=== PATIENT | male | born 1955 | race Caucasian/White ===

== ENCOUNTER → 2016-05-18 | Outpatient (CLI) | payer BC ==
[2016-05-18 13:36] LABS: ALBUMIN 3.8 GM/DL (3.2-5.2); ALBUMIN/GLOBULIN RATIO 1.41 (1.00-1.93); ALKALINE PHOSPHATASE 65 U/L (45-117); ALT/SGPT 27 U/L (12-78); ANION GAP 6 MEQ/L (8-16); AST/SGOT 18 U/L (15-37); BILIRUBIN,TOTAL 0.7 MG/DL (0.2-1.0); BLOOD UREA NITROGEN 15 MG/DL (7-18); CALCIUM LEVEL 9.2 MG/DL (8.8-10.2); CARBON DIOXIDE LEVEL 31 MEQ/L (21-32); CHLORIDE LEVEL 105 MEQ/L (98-107); CHOLESTEROL LEVEL 111 MG/DL (<200); CREATININE FOR GFR 0.86 MG/DL (0.70-1.30); GLOMERULAR FILTRATION RATE > 60.0 (>49); GLUCOSE, FASTING 92 MG/DL (80-110); POTASSIUM SERUM 4.3 MEQ/L (3.5-5.1); SODIUM LEVEL 142 MEQ/L (136-145); TOTAL PROTEIN 6.5 GM/DL (6.4-8.2); TRIGLYCERIDES LEVEL 151 MG/DL (<150)
== END ==
LOC: M WUC 08:45
PROVIDERS: ATTEND Emergency Medicine
DX: Z00.00 Encounter for general adult medical examination without abnormal findings (principal); I10 Essential (primary) hypertension; E78.2 Mixed hyperlipidemia; N40.1 Benign prostatic hyperplasia with lower urinary tract symptoms; R73.01 Impaired fasting glucose

== ENCOUNTER → 2020-11-13 | Outpatient (CLI) | payer MEDICARE, OTHER | LOC: M WUC 08:33 | PROVIDERS: ATTEND Student in an Organized Health Care Education/Training Program | DX: E78.2 Mixed hyperlipidemia (principal) ==

== ENCOUNTER → 2020-11-17 | Outpatient (CLI) | payer OTHER ==
[2020-11-17 13:34] LABS: BASO % 0.4 % (0.0-1.0); EOS # 0.1 10^3/uL (0.0-0.5); EOS % 0.7 % (0.0-3.0); HEMATOCRIT 46.4 % (42.0-52.0); HEMOGLOBIN 14.8 g/dl (13.5-17.5); LYMPH # 1.9 10^3/uL (1.5-5.0); LYMPH % 21.7 % (24.0-44.0); MEAN CORPUSCULAR HGB CONC 31.9 g/dl (32.0-36.5); MEAN CORPUSCULAR VOLUME 84.7 fl (80.0-96.0); MONO # 0.7 10^3/uL (0.0-0.8); NEUTROPHILS # 6.2 10^3/uL (1.5-8.5); NEUTROPHILS % 68.9 % (36.0-66.0); PLATELET COUNT, AUTOMATED 252 10^3/uL (150-450); RED BLOOD COUNT 5.48 10^6/uL (4.30-6.10); WHITE BLOOD COUNT 8.9 10^3/uL (4.0-10.0)
[2020-11-17 14:09] LABS: ALT/SGPT 22 U/L (12-78); BLOOD UREA NITROGEN 24 MG/DL (7-18); CALCIUM LEVEL 9.4 MG/DL (8.8-10.2); CARBON DIOXIDE LEVEL 29 MEQ/L (21-32); CHLORIDE LEVEL 105 MEQ/L (98-107); CPK CREATINE PHOSPHOKINASE 67 U/L (39-308); GLOMERULAR FILTRATION RATE > 60.0 (>49); GLUCOSE, FASTING 116 MG/DL (70-100); SODIUM LEVEL 139 MEQ/L (136-145); TOTAL PROTEIN 6.9 GM/DL (6.4-8.2)
== END ==
LOC: M PLALAB 09:11
PROVIDERS: ATTEND Student in an Organized Health Care Education/Training Program
DX: E78.2 Mixed hyperlipidemia (principal)

== ENCOUNTER → 2020-11-27 | Outpatient (CLI) | payer MEDICARE, OTHER ==
[~2020-11-27] MED LIST: ISOVUE-370 76% 100ML VIAL As Ordered ONE
[2020-11-27 08:43] LABS: APPEARANCE, URINE CLEAR (CLEAR); BACTERIA, URINE AUTO NEGATIVE (NEGATIVE); BILIRUBIN, URINE AUTO NEGATIVE (NEGATIVE); BLOOD, URINE BLOOD NEGATIVE (NEGATIVE); COLOR, URINE YELLOW (YELLOW); GLUCOSE, URINE (UA) AUTO NEGATIVE (NEGATIVE); KETONE, URINE AUTO NEGATIVE (NEGATIVE); LEUKOCYTE ESTERASE, URINE AUTO NEGATIVE (NEGATIVE); MUCUS, URINE SMALL (NEGATIVE); NITRITE, URINE AUTO NEGATIVE (NEGATIVE); PROTEIN, URINE AUTO NEGATIVE (NEGATIVE); RBC, URINE AUTO 1 /HPF (0-3); SPECIFIC GRAVITY URINE AUTO 1.021 (1.002-1.035); SQUAMOUS EPITHELIAL CELL UR AU 0 /HPF (0-6); UROBILINOGEN, URINE AUTO 0.2 mg/dL (0.0-2.0); WBC, URINE AUTO 3 /HPF (0-3)
--- NOTE | 2020-11-27 09:15 | REP ---
INDICATION: NICOTINE DEPENDENCE WITH CURRENT USE, HEMATURIA- LABS FIRST COMPARISON: None. TECHNIQUE: Real time aguilar scale ultrasound examination using curved array transducer. FINDINGS: The abdominal aorta is normal by sonographic evaluation without significant atherosclerotic changes and no evidence for aneurysm. Proximal aorta: 2.6 x 2.6 cm Aorta at renal arteries: 2.6 x 2.4 cm Mid aorta: 2.2 x 2.2 cm Distal aorta: 2.1 x 1.7 cm Right common iliac artery: 0.9 x 1.0 cm Left common iliac artery: 1.2 x 1.0 cm IMPRESSION: Normal abdominal aorta. No aneurysm. <Electronically signed by Conrad Mac > 11/27/20 0912
--- NOTE | 2020-11-27 09:23 | REP ---
INDICATION: GROSS HEMATURIA- LABS AND U/S FIRST. COMPARISON: None TECHNIQUE: Axial precontrast, contrast-enhanced and delayed images from the lung bases to the pubic symphysis using 100 cc Isovue 370 intravenous contrast material. Coronal and sagittal reformations obtained. 3D volume rendered urogram created. This CT examination was performed using the following dose reduction techniques: Automated exposure control, adjustment of mA and/or kv according to the patient's size, and the use of iterative reconstruction technique. FINDINGS: Right kidney includes 4 mm nonobstructing calculus and subcentimeter simple cyst while the left kidney includes 5 mm nonobstructing calculus. There is no evidence for perinephric stranding, hydroureteronephrosis or obstructing ureteral calculus. Liver, spleen, pancreas, gallbladder, and bilateral adrenal glands are normal. Incidental 1 cm cyst in the medial left lobe. The enteric system including stomach, small, and large bowel appears normal. No evidence for obstruction or acute inflammatory process. Normal terminal ileum and appendix are identified in the right lower quadrant. Scattered colonic and sigmoid diverticula noted without acute diverticulitis. Pelvis demonstrates normal bladder and enlarged prostate gland measuring 5.8 cm diameter. No ascites. No free air. No intraperitoneal or retroperitoneal adenopathy. Abdominal aorta and vasculature demonstrate atherosclerotic changes without aneurysm or dissection. Musculoskeletal structures are intact and without acute osseous abnormality. IMPRESSION: 1. Bilateral nonobstructing renal calculi and subcentimeter right renal cyst. 2. Prostatomegaly. 3. Diverticulosis. <Electronically signed by Conrad Mac > 11/27/20 0919
== END ==
LOC: M RAD 08:01
PROVIDERS: ATTEND Student in an Organized Health Care Education/Training Program
DX: N20.0 Calculus of kidney (principal); N40.0 Benign prostatic hyperplasia without lower urinary tract symptoms; K57.30 Diverticulosis of large intestine without perforation or abscess without bleeding; N28.1 Cyst of kidney, acquired; R31.0 Gross hematuria; F17.200 Nicotine dependence, unspecified, uncomplicated
CPT/HCPCS: 74178; 76775; 81001; 87086; 88108; Q9967

== ENCOUNTER → 2020-12-16 | Outpatient (REF) | payer MEDICARE, OTHER | LOC: M SFHCPLAZ 09:53 | PROVIDERS: ATTEND Family Medicine | DX: N40.0 Benign prostatic hyperplasia without lower urinary tract symptoms (principal) ==

== ENCOUNTER → 2020-12-16 | Outpatient (CLI) | payer MEDICARE, OTHER | LOC: M PLALAB 10:14 | PROVIDERS: ATTEND Student in an Organized Health Care Education/Training Program | DX: N40.0 Benign prostatic hyperplasia without lower urinary tract symptoms (principal) | CPT/HCPCS: 36415; G0103 ==

== ENCOUNTER → 2020-12-30 | Outpatient (CLI) | payer MEDICARE, OTHER ==
--- NOTE | 2020-12-30 14:25 | REP ---
INDICATION: NICOTINE DEPENDENCE. COMPARISON: None. TECHNIQUE: Axial noncontrast images from the thoracic inlet to the upper abdomen using low-dose lung screening technique (LDCT). As per the protocol only lung window images were sent to the read station for interpretation. FINDINGS: There is biapical pleuroparenchymal scarring right greater than left. There are emphysematous changes. Parenchymal bulla and pleural blebs are identified. There is a small 4 mm size asymmetric nodule in the right middle lobe. There is a 6 mm size nodule in the right lower lobe. Grossly, the mediastinum and pulmonary tammy are within normal limits. Grossly, the imaged upper abdomen and imaged osseous structures are within normal limits. IMPRESSION: Pulmonary nodules and chronic lung field changes as described above. According to the revised Fleischner society criteria the 6 mm size nodule represents a category 3 lesion for which a six-month follow-up chest CT is recommended since are no priors for comparison. The fact that the nodule was seen on the lung base images of 11/27/[address] does not change the lung rads category of 3. <Electronically signed by Sonido Mejia > 12/30/20 [id number]
== END ==
LOC: M RAD 13:02
PROVIDERS: ATTEND Student in an Organized Health Care Education/Training Program
DX: R91.8 Other nonspecific abnormal finding of lung field (principal); F17.200 Nicotine dependence, unspecified, uncomplicated

== ENCOUNTER → 2021-02-02 | Outpatient (CLI) | payer MEDICARE, OTHER | LOC: M WUC 13:02 | PROVIDERS: ATTEND Urology | DX: R97.20 Elevated prostate specific antigen [PSA] (principal) ==

== ENCOUNTER → 2021-05-07 | Outpatient (REF) | payer MEDICARE, OTHER ==
[2021-05-07 13:46] LABS: APPEARANCE, URINE MANUAL TURBID (CLEAR); COLOR, URINE MANUAL RED (YELLOW)
[2021-05-07 13:47] LABS: BILIRUBIN, URINE MANUAL NEGATIVE (NEGATIVE); BLOOD URINE MANUAL POSITIVE (NEGATIVE); GLUCOSE, URINE (UA) MANUAL NEGATIVE (NEGATIVE); KETONE, URINE MANUAL NEGATIVE (NEGATIVE); LEUKOCYTE ESTERASE, URINE MAN POSITIVE (NEGATIVE); NITRITE, URINE MANUAL NEGATIVE (NEGATIVE); PROTEIN, URINE MANUAL 2+ mg/dL (NEGATIVE); SPECIFIC GRAVITY,URINE MANUAL 1.025 (1.002-1.035); UROBILINOGEN, URINE MANUAL NORMAL (NORMAL)
[2021-05-07 13:56] LABS: RBC, URINE TNTC /hpf (0-3); SQUAMOUS EPITHELIAL CELL URINE NONE SEEN /hpf (SMALL AMT); WBC, URINE TNTC /hpf (0-3)
[2021-05-07 13:57] LABS: BACTERIA, URINE LARGE AMOUNT; HYALINE CAST, URINE NONE SEEN /lpf (0-1)
== END ==
LOC: M SMT 12:56
PROVIDERS: ATTEND Urology
DX: R31.0 Gross hematuria (principal)

== ENCOUNTER → 2021-06-08 | Outpatient (CLI) | payer MEDICARE, OTHER ==
[2021-06-09 23:07] LABS: PSA % FREE 24.8 % (.); PSA FREE 1.71 ng/mL; PSA TOTAL 6.9 ng/mL (0.0-4.0)
== END ==
LOC: M WUC 09:06
PROVIDERS: ATTEND Urology
DX: R31.0 Gross hematuria (principal); R97.20 Elevated prostate specific antigen [PSA]

== ENCOUNTER → 2021-07-06 | Outpatient (CLI) | payer MEDICARE, OTHER ==
[2021-07-06 13:31] LABS: ALT/SGPT 17 U/L (12-78); BILIRUBIN,TOTAL 0.5 MG/DL (0.2-1.0); BLOOD UREA NITROGEN 20 MG/DL (7-18); CALCIUM LEVEL 9.7 MG/DL (8.8-10.2); CARBON DIOXIDE LEVEL 31 MEQ/L (21-32); CHLORIDE LEVEL 107 MEQ/L (98-107); CHOLESTEROL LEVEL 148 MG/DL (<200); CREATININE FOR GFR 0.83 MG/DL (0.70-1.30); GLOMERULAR FILTRATION RATE > 60.0 (>49); GLUCOSE, FASTING 103 MG/DL (70-100); HDL CHOLESTEROL 37 MG/DL (>40); LDL CHOLESTEROL 89 MG/DL (<100); NON-HDL-C 111 MG/DL; POTASSIUM SERUM 4.6 MEQ/L (3.5-5.1); SODIUM LEVEL 142 MEQ/L (136-145); TOTAL PROTEIN 6.9 GM/DL (6.4-8.2); TRIGLYCERIDES LEVEL 109 MG/DL (<150)
== END ==
LOC: M WUC 09:27
PROVIDERS: ATTEND Student in an Organized Health Care Education/Training Program
DX: E78.2 Mixed hyperlipidemia (principal); R97.20 Elevated prostate specific antigen [PSA]

== ENCOUNTER → 2021-07-09 | Outpatient (CLI) | payer MEDICARE, OTHER | LOC: M PLAIMG 11:07 | PROVIDERS: ATTEND Student in an Organized Health Care Education/Training Program | DX: R91.8 Other nonspecific abnormal finding of lung field (principal); N20.0 Calculus of kidney; J43.9 Emphysema, unspecified; I25.10 Atherosclerotic heart disease of native coronary artery without angina pectoris ==

== ENCOUNTER → 2021-07-09 | Outpatient (CLI) | payer MEDICARE, OTHER ==
[2021-07-09 16:31] LABS: BLOOD UREA NITROGEN 14 MG/DL (7-18); CALCIUM LEVEL 9.3 MG/DL (8.8-10.2); CARBON DIOXIDE LEVEL 29 MEQ/L (21-32); CHLORIDE LEVEL 107 MEQ/L (98-107); CREATININE FOR GFR 0.85 MG/DL (0.70-1.30); GLOMERULAR FILTRATION RATE > 60.0 (>49); GLUCOSE, FASTING 113 MG/DL (70-100); POTASSIUM SERUM 3.9 MEQ/L (3.5-5.1); SODIUM LEVEL 141 MEQ/L (136-145)
== END ==
LOC: M WUC 11:47
PROVIDERS: ATTEND Urology
DX: R97.20 Elevated prostate specific antigen [PSA] (principal)

== ENCOUNTER → 2021-07-22 | Outpatient (REF) | payer MEDICARE, OTHER | LOC: M SFHCDERM 17:23 | PROVIDERS: ATTEND Nurse Practitioner Family | DX: D22.5 Melanocytic nevi of trunk (principal) | CPT/HCPCS: 11102; 11200; 17000; 17110; 88305; G0463 ==

== ENCOUNTER → 2021-08-04 | Outpatient (CLI) | payer MEDICARE, OTHER ==
[~2021-08-04] MED LIST changes: -ISOVUE-370 76% 100ML VIAL As Ordered ONE; +PROHANCE 279.3MG/ML 15ML VIAL As Ordered ONE
== END ==
LOC: M RAD 12:32
PROVIDERS: ATTEND Urology
DX: R97.20 Elevated prostate specific antigen [PSA] (principal)
CPT/HCPCS: 72197; A9576

== ENCOUNTER → 2021-09-07 | Outpatient (REF) | payer MEDICARE, OTHER ==
[2021-09-07 19:17] LABS: APPEARANCE, URINE CLOUDY (CLEAR); BACTERIA, URINE AUTO NEGATIVE (NEGATIVE); BILIRUBIN, URINE AUTO NEGATIVE (NEGATIVE); BLOOD, URINE BLOOD 2+ (NEGATIVE); COLOR, URINE RED (YELLOW); GLUCOSE, URINE (UA) AUTO NEGATIVE (NEGATIVE); KETONE, URINE AUTO TRACE mg/dL (NEGATIVE); LEUKOCYTE ESTERASE, URINE AUTO NEGATIVE (NEGATIVE); NITRITE, URINE AUTO NEGATIVE (NEGATIVE); PROTEIN, URINE AUTO 2+ mg/dL (NEGATIVE); RBC, URINE AUTO TNTC /HPF (0-3); SPECIFIC GRAVITY URINE AUTO 1.015 (1.002-1.035); SQUAMOUS EPITHELIAL CELL UR AU 0 /HPF (0-6); UROBILINOGEN, URINE AUTO 0.2 mg/dL (0.0-2.0); WBC, URINE AUTO 0 /HPF (0-3)
== END ==
LOC: M SMT 17:10
PROVIDERS: ATTEND Urology
DX: R31.0 Gross hematuria (principal)

== ENCOUNTER → 2021-10-15 | Outpatient (REF) | payer MEDICARE, OTHER | LOC: M SFHCDERM 13:57 | PROVIDERS: ATTEND Nurse Practitioner Family | DX: D22.39 Melanocytic nevi of other parts of face (principal) ==

== ENCOUNTER → 2021-12-11 | Outpatient (REF) | payer MEDICARE, OTHER | LOC: M LAB REF 19:34 | PROVIDERS: ATTEND Physician Assistant | DX: M54.50 Low back pain, unspecified (principal); N39.0 Urinary tract infection, site not specified ==

== ENCOUNTER → 2021-12-24 | Outpatient (REF) | payer MEDICARE, OTHER ==
[2021-12-24 18:08] LABS: APPEARANCE, URINE MANUAL CLEAR (CLEAR); BILIRUBIN, URINE MANUAL NEGATIVE (NEGATIVE); BLOOD URINE MANUAL POSITIVE (NEGATIVE); COLOR, URINE MANUAL YELLOW (YELLOW); GLUCOSE, URINE (UA) MANUAL NEGATIVE (NEGATIVE); KETONE, URINE MANUAL NEGATIVE (NEGATIVE); LEUKOCYTE ESTERASE, URINE MAN POSITIVE (NEGATIVE); NITRITE, URINE MANUAL NEGATIVE (NEGATIVE); SPECIFIC GRAVITY,URINE MANUAL 1.025 (1.002-1.035); UROBILINOGEN, URINE MANUAL NORMAL (NORMAL)
[2021-12-24 18:09] LABS: PROTEIN, URINE MANUAL TRACE mg/dL (NEGATIVE)
[2021-12-24 18:59] LABS: BACTERIA, URINE SMALL AMOUNT; HYALINE CAST, URINE NONE SEEN /lpf (0-1); SQUAMOUS EPITHELIAL CELL URINE SMALL AMOUNT /hpf (SMALL AMT)
== END ==
LOC: M SMT 16:44
PROVIDERS: ATTEND Physician Assistant
DX: N23 Unspecified renal colic (principal)

== ENCOUNTER → 2021-12-27 | Outpatient (CLI) | payer MEDICARE, OTHER | LOC: M PLAIMG 08:08 | PROVIDERS: ATTEND Physician Assistant | DX: N13.2 Hydronephrosis with renal and ureteral calculous obstruction (principal); N40.0 Benign prostatic hyperplasia without lower urinary tract symptoms ==

== ENCOUNTER → 2022-01-18 | Outpatient (REF) | payer MEDICARE, OTHER | LOC: M SFHCDERM 14:09 | PROVIDERS: ATTEND Dermatology | DX: L90.5 Scar conditions and fibrosis of skin (principal) ==

== ENCOUNTER → 2022-02-16 | Outpatient (REF) | payer MEDICARE, OTHER ==
[2022-02-18 19:08] LABS: PSA FREE 1.75 ng/mL
== END ==
LOC: M LABWUC 16:36
PROVIDERS: ATTEND Urology
DX: R97.20 Elevated prostate specific antigen [PSA] (principal)

== ENCOUNTER → 2022-05-13 | Outpatient (REF) | payer MEDICARE, OTHER | LOC: M LAB REF 20:27 | PROVIDERS: ATTEND Physician Assistant | DX: M54.50 Low back pain, unspecified (principal) ==

== ENCOUNTER → 2022-05-16 | Outpatient (CLI) | payer MEDICARE, OTHER ==
[2022-05-16 13:31] LABS: ALBUMIN 4.1 G/DL (3.2-5.2); BLOOD UREA NITROGEN 20 MG/DL (9-23); CALCIUM LEVEL 8.4 MG/DL (8.3-10.6); CARBON DIOXIDE LEVEL 29 MMOL/L (20-31); CHLORIDE LEVEL 107 MMOL/L (98-107); CREATININE FOR GFR 0.84 MG/DL (0.70-1.30); GLOMERULAR FILTRATION RATE > 60.0 (>49); GLUCOSE, FASTING 85 MG/DL (74-106); PHOSPHORUS LEVEL 2.8 MG/DL (2.4-5.1); POTASSIUM SERUM 3.9 MMOL/L (3.5-5.1); SODIUM LEVEL 140 MMOL/L (136-145)
== END ==
LOC: M WUC 08:52
PROVIDERS: ATTEND Physician Assistant
DX: M54.50 Low back pain, unspecified (principal)

== ENCOUNTER 2022-07-06 13:12 | Emergency (ER) | payer MEDICARE, OTHER ==
[~2022-07-06] VITALS: Ht 185.4 cm; Wt 69.5 kg
[2022-07-06 13:13] VITALS: BP 160/82
[2022-07-06] MEDS ORDERED: BENA2CRE3 TOP (15:52)
[2022-07-06] MEDS ORDERED: HYDR2.5C (15:52)
== END 2022-07-06 16:45 | disposition left against medical advice (07) ==
LOC: M ED 13:12
DX: R22.9 Localized swelling, mass and lump, unspecified (principal); Z53.21 Procedure and treatment not carried out due to patient leaving prior to being seen by health care provider

== ENCOUNTER → 2022-07-08 | Outpatient (CLI) | payer MEDICARE, OTHER ==
[~2022-07-08] MED LIST changes: +BENA2CRE3 TOP; +HYDR2.5C; -PROHANCE 279.3MG/ML 15ML VIAL As Ordered ONE
[2022-07-11 23:09] LABS: PSA % FREE 27.8 % (.); PSA FREE 2.67 ng/mL; PSA TOTAL 9.6 ng/mL (0.0-4.0)
== END ==
LOC: M WUC 13:40
PROVIDERS: ATTEND Urology
DX: R97.20 Elevated prostate specific antigen [PSA] (principal)

== ENCOUNTER → 2022-11-03 | Outpatient (CLI) | payer MEDICARE, OTHER | LOC: M RAD 15:53 | PROVIDERS: ATTEND Student in an Organized Health Care Education/Training Program | DX: Z12.2 Encounter for screening for malignant neoplasm of respiratory organs (principal); F17.210 Nicotine dependence, cigarettes, uncomplicated ==

== ENCOUNTER → 2023-01-30 | Outpatient (CLI) | payer MEDICARE, BC ==
[2023-01-30 17:57] LABS: HEMATOCRIT 41.9 % (42.0-52.0); HEMOGLOBIN 13.6 g/dl (13.5-17.5); MEAN CORPUSCULAR HEMOGLOBIN 27.7 pg (27.0-33.0); MEAN CORPUSCULAR HGB CONC 32.5 g/dl (32.0-36.5); MEAN CORPUSCULAR VOLUME 85.3 fl (80.0-96.0); PLATELET COUNT, AUTOMATED 236 10^3/uL (150-450); RED BLOOD COUNT 4.91 10^6/uL (4.30-6.10)
[2023-01-30 18:14] LABS: HEMOGLOBIN A1c 5.4 % (4.0-6.0)
[2023-01-30 18:36] LABS: BLOOD UREA NITROGEN 17 MG/DL (9-23); CALCIUM LEVEL 9.2 MG/DL (8.3-10.6); CARBON DIOXIDE LEVEL 32 MMOL/L (20-31); CHLORIDE LEVEL 105 MMOL/L (98-107); CHOLESTEROL LEVEL 137 MG/DL (<200); CREATININE FOR GFR 0.76 MG/DL (0.70-1.30); FREE T4 1.27 NG/DL (0.89-1.76); GLOMERULAR FILTRATION RATE > 60.0 (>49); GLUCOSE, FASTING 93 MG/DL (74-106); HDL CHOLESTEROL 34.2 MG/DL (>40); LDL CHOLESTEROL 77.2 MG/DL (<100); NON-HDL-C 102.8 MG/DL; POTASSIUM SERUM 4.4 MMOL/L (3.5-5.1); SODIUM LEVEL 140 MMOL/L (136-145); TRIGLYCERIDES LEVEL 128 MG/DL (<150)
== END ==
LOC: M PLAIMG 15:54
PROVIDERS: ATTEND Student in an Organized Health Care Education/Training Program
DX: Z00.00 Encounter for general adult medical examination without abnormal findings (principal); M89.8X7 Other specified disorders of bone, ankle and foot; M77.32 Calcaneal spur, left foot; E78.5 Hyperlipidemia, unspecified; Z13.1 Encounter for screening for diabetes mellitus; Z13.29 Encounter for screening for other suspected endocrine disorder; Z79.899 Other long term (current) drug therapy

== ENCOUNTER → 2023-03-17 | Outpatient (CLI) | payer BC, MEDICARE | LOC: M CARPUL 13:52 | PROVIDERS: ATTEND Student in an Organized Health Care Education/Training Program | DX: R01.1 Cardiac murmur, unspecified (principal); I80.3 Phlebitis and thrombophlebitis of lower extremities, unspecified; I27.20 Pulmonary hypertension, unspecified ==

== ENCOUNTER → 2023-09-26 | Outpatient (REF) | payer MEDICARE, BC | LOC: M LABSMT 16:02 | PROVIDERS: ATTEND Urology | DX: R97.20 Elevated prostate specific antigen [PSA] (principal) ==

== ENCOUNTER → 2023-10-05 | Outpatient (CLI) | payer MEDICARE, BC ==
[2023-10-09 12:23] LABS: PSA FREE 2.6 ng/mL; PSA TOTAL 8.5 ng/mL (< OR = 4.0)
== END ==
LOC: M WUC 13:12
PROVIDERS: ATTEND Urology
DX: R97.20 Elevated prostate specific antigen [PSA] (principal)

== ENCOUNTER → 2023-10-13 | Outpatient (CLI) | payer OTHER, MEDICARE, BC | LOC: M PLAIMG 09:10 | PROVIDERS: ATTEND Physician Assistant | DX: M51.36 Other intervertebral disc degeneration, lumbar region (principal); M47.26 Other spondylosis with radiculopathy, lumbar region ==

== ENCOUNTER → 2023-11-28 | Outpatient (REF) | payer MEDICARE, BC | LOC: M SFHCPLAZ 10:01 | PROVIDERS: ATTEND Family Medicine | DX: M48.061 Spinal stenosis, lumbar region without neurogenic claudication (principal) ==

== ENCOUNTER → 2024-01-15 | Outpatient (REF) | payer MEDICARE, BC | LOC: M SFHCPLAZ 21:27 | PROVIDERS: ATTEND Family Medicine | DX: E78.2 Mixed hyperlipidemia (principal); R53.83 Other fatigue; Z13.1 Encounter for screening for diabetes mellitus ==

== ENCOUNTER → 2024-02-01 | Outpatient (CLI) | payer MEDICARE, BC ==
[2024-02-01 16:56] LABS: BASO % 0.5 % (0.0-1.0); EOS # 0.1 10^3/uL (0.0-0.5); HEMATOCRIT 44.5 % (42.0-52.0); HEMOGLOBIN 14.3 g/dl (13.5-17.5); LYMPH # 2.4 10^3/uL (1.5-5.0); LYMPH % 29.1 % (24.0-44.0); MEAN CORPUSCULAR HEMOGLOBIN 27.6 pg (27.0-33.0); MEAN CORPUSCULAR HGB CONC 32.1 g/dl (32.0-36.5); MEAN CORPUSCULAR VOLUME 85.7 fl (80.0-96.0); MONO # 0.7 10^3/uL (0.0-0.8); MONO % 8.9 % (2.0-8.0); NEUTROPHILS # 4.8 10^3/uL (1.5-8.5); NEUTROPHILS % 58.8 % (36.0-66.0); PLATELET COUNT, AUTOMATED 240 10^3/uL (150-450); RED BLOOD COUNT 5.19 10^6/uL (4.30-6.10); WHITE BLOOD COUNT 8.1 10^3/uL (4.0-10.0)
[2024-02-01 17:12] LABS: HEMOGLOBIN A1c 5.6 % (4.0-6.0)
[2024-02-01 17:17] LABS: CHOLESTEROL RISK RATIO 4.75 (<5)
[2024-02-01 17:18] LABS: THYROID STIMULATING HORMONE 2.011 uIU/ML (0.55-4.78)
[2024-02-01 17:19] LABS: FREE T4 1.37 NG/DL (0.89-1.76)
== END ==
LOC: M WUC 13:27
DX: R53.83 Other fatigue (principal); Z13.1 Encounter for screening for diabetes mellitus; E78.2 Mixed hyperlipidemia; Z79.899 Other long term (current) drug therapy

== ENCOUNTER → 2024-02-19 | Outpatient (CLI) | payer MEDICARE, BC | LOC: M WUC 15:13 | DX: M48.02 Spinal stenosis, cervical region (principal) ==

== ENCOUNTER → 2024-03-23 | Outpatient (REF) | payer MEDICARE, BC | LOC: M LAB REF 17:28 | PROVIDERS: ATTEND Physician Assistant Medical | DX: R30.0 Dysuria (principal) ==

== ENCOUNTER → 2024-03-29 | Outpatient (CLI) | payer BC, MEDICARE | LOC: M RAD 07:47 | DX: R91.8 Other nonspecific abnormal finding of lung field (principal); J98.11 Atelectasis; J43.9 Emphysema, unspecified; I77.810 Thoracic aortic ectasia ==

== ENCOUNTER → 2024-04-10 | Outpatient (CLI) | payer BC, MEDICARE | LOC: M RAD 10:51 | PROVIDERS: ATTEND Neurological Surgery | DX: M48.02 Spinal stenosis, cervical region (principal) ==

== ENCOUNTER → 2024-05-09 | Outpatient (CLI) | payer OTHER, MEDICARE | LOC: M RAD 17:05 | PROVIDERS: ATTEND Student in an Organized Health Care Education/Training Program | DX: M48.062 Spinal stenosis, lumbar region with neurogenic claudication (principal) ==

== ENCOUNTER → 2024-06-10 | Outpatient (REF) | payer MEDICARE, BC | LOC: M SFHCPLAZ 05:34 | PROVIDERS: ATTEND Student in an Organized Health Care Education/Training Program | DX: Z53.9 Procedure and treatment not carried out, unspecified reason (principal) ==